=== PATIENT | male | born 1935 | race Caucasian/White ===

== ENCOUNTER → 2017-03-20 | Outpatient (CLI) | payer MEDICARE, OTHER | END | disposition home or self-care (01) | LOC: PCVCCLINIC 13:10 | PROVIDERS: ATTEND Internal Medicine Cardiovascular Disease | DX: I10 Essential (primary) hypertension (principal); I77.810 Thoracic aortic ectasia; R00.1 Bradycardia, unspecified; Z87.891 Personal history of nicotine dependence; Z79.899 Other long term (current) drug therapy | CPT/HCPCS: 80061; 93005; G0463 ==

== ENCOUNTER → 2017-10-31 | Outpatient (CLI) | payer MEDICARE, OTHER | END | disposition home or self-care (01) | LOC: PCVCCLINIC 11:16 | DX: I77.810 Thoracic aortic ectasia (principal); I10 Essential (primary) hypertension; R91.8 Other nonspecific abnormal finding of lung field; E03.9 Hypothyroidism, unspecified; Z87.891 Personal history of nicotine dependence | CPT/HCPCS: 80061; 93005; G0463 ==

== ENCOUNTER → 2018-08-06 | Outpatient (CLI) | payer MEDICARE, OTHER ==
--- NOTE | 2018-08-06 14:25 | PCVCIMAG ---
APPROVED REPORT Study performed: 08/06/2018 13:10:13 EXAM: Comprehensive 2D, Doppler, and color-flow Echocardiogram Patient Location: Echo lab Room #: 2Status: routine BSA: 2.26 HR: 55 bpmBP: 152/72 mmHg Rhythm: Bradycardia Other Information Study Quality: Good Risk Factors: Cardiac Risk Factors: HTN Indications Hypertension/HDD Hx: Ao root dilitation 2D Dimensions IVSd: 11.91 (7-11mm)LVOT Diam: 20.68 (18-24mm) LVDd: 43.59 mm PWd: 10.46 (7-11mm)Ascending Ao: 47.13 (22-36mm) LVDs: 27.40 (25-40mm) Left Atrium: 33.82 (27-40mm) Aortic Root: 44.80 mm LV Single Plane 4CH: 59.69 % LV Single Plane 2CH: 63.56 % Biplane EF: 61.7 % Volumes Left Atrial Volume (Systole) Single Plane 4CH: 66.57 mLSingle Plane 2CH: 82.36 mL Biplane LA Volume: 75.00 mLLA ESV Index: 33.00 mL/m2 Aortic Valve AoV Peak Germán.: 1.59 m/s AO Peak Gr.: 10.52 mmHgLVOT Max P.14 mmHg LVOT Max V: 0.73 m/s PEGGY Vmax: 1.54 cm2 Mitral Valve E/A Ratio: 0.8 MV Decel. Time: 323.00 ms MV E Max Germán.: 0.69 m/s MV A Germán.: 0.89 m/s MV PHT: 61.42 ms MVA (PHT): 3.58 cm2 IVRT: 100.35 ms TDI E/Lateral E': 6.90E/Medial E': 9.86 Medial E' Germán.: 0.07 m/s Lateral E' Germán.: 0.10 m/s Pulmonary Valve PV Peak Germán.: 1.05 m/sPV Peak Gr.: 4.41 mmHg Pulmonary Vein P Vein S: 0.68 m/sP Vein A: 0.36 m/s P Vein D: 0.32 m/sP Vein A Dur.: 124.6 msec P Vein S/D Ratio: 2.13 Tricuspid Valve TR Peak Germán.: 2.90 m/s TR Peak Gr.: 33.63 mmHg TV Vmax: 0.59 m/sPA Pressure: 41.00 mmHg Left Ventricle The left ventricle is normal size. There is normal LV segmental wall motion. There is normal left ventricular wall thickness. Left ventricular systolic function is normal. The left ventricular ejection fraction is within the normal range. LVEF is 60-65%. Grade I - abnormal relaxation pattern. Right Ventricle The right ventricle is normal size. The right ventricular systolic function is normal. Atria The left atrium size is normal. The right atrium size is normal. Aortic Valve Aortic valve is trileaflet. Mild aortic valve sclerosis. No aortic regurgitation is present. There is no aortic valvular stenosis. Mitral Valve The mitral valve is normal in structure. Trace to mild mitral regurgitation. No evidence of mitral valve stenosis. Tricuspid Valve The tricuspid valve is normal in structure. Mild to moderate tricuspid regurgitation with a eccentric jet. PA pressure is 41 mmHg. Mild-moderate pulmonary hypertension. Pulmonic Valve The pulmonary valve is normal in structure. Trace to mild pulmonic regurgitation. Great Vessels Aortic root is dilated. 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 IVC is normal in size and collapses >50% with inspiration. Pericardium There is no pericardial effusion. There is no pleural effusion. <Conclusion> The left ventricle is normal size. LVEF is 60-65%. Grade I - abnormal relaxation pattern. The right ventricle is normal size. The left atrium size is normal. Aortic valve is trileaflet. Mild aortic valve sclerosis. There is no aortic valvular stenosis. Trace to mild mitral regurgitation. Mild to moderate tricuspid regurgitation with a eccentric jet. PA pressure is 41 mmHg. Mild-moderate pulmonary hypertension. Aortic root is dilated. There is no pericardial effusion.
== END | disposition home or self-care (01) ==
LOC: PCVCIMAG 13:29
PROVIDERS: ATTEND Internal Medicine Cardiovascular Disease
DX: I08.3 Combined rheumatic disorders of mitral, aortic and tricuspid valves (principal); I10 Essential (primary) hypertension; I77.810 Thoracic aortic ectasia; E78.5 Hyperlipidemia, unspecified; K21.9 Gastro-esophageal reflux disease without esophagitis; E03.9 Hypothyroidism, unspecified
CPT/HCPCS: 93005; 93306; G0463